=== PATIENT | male | born 1960 | race Caucasian/White ===

== ENCOUNTER 2016-08-18 10:40 | Outpatient (CLI) | payer OTHER ==
[~2016-08-18 10:40] MED LIST: EFFEXOR25 MG PO; NYQUIL PO; PERCOCET1 TA1 PO; UNKNOWN BP MED
--- NOTE | 2016-08-18 12:40 | DIAGNOSTIC IMAGING REPORT ---
PROCEDURE: MR LOWER EXT JOINT WO CONT-LT INDICATION: LT KNEE PAIN,HX QUADRICEP TENDON RUPTURE TECHNIQUE: PD and FAT-SAT PD sagittal and coronal images. FAT-SAT PD axial images. High-resolution T2 sagittal images of the cruciate ligaments. (Total of 6 sequences). COMPARISON: Left knee MRI 05/01/2015 FINDINGS: Minor spurring of the medial and lateral compartments. Normal cruciate and collateral ligaments. Normal menisci. Mild chondromalacia of the medial and lateral compartments. Thickening and increased T2 signal of the quadriceps tendon distally consistent with tendinosis versus postsurgical changes. There is tendinosis of the patellar tendon proximally. Normal patellar cartilage. Small joint effusion with medial plica. Tiny popliteal cyst. IMPRESSION: 1. Resolved quadriceps tendon rupture with tendinosis versus postsurgical changes 2. Patellar tendinosis 3. Mild degenerative changes of the medial and lateral compartments with mild chondromalacia 4. Small effusion with medial plica
== END 2016-08-18 23:00 ==
LOC: MRI SRH 10:40
DX: M76.52 Patellar tendinitis, left knee (principal); M25.462 Effusion, left knee; M22.42 Chondromalacia patellae, left knee; M17.12 Unilateral primary osteoarthritis, left knee